=== PATIENT | female | born 1975 | race Caucasian/White ===

== ENCOUNTER → 2017-06-17 | Outpatient (CLI) | payer BC ==
[~2017-06-17] MED LIST: AMBIEN 5MG TABLE5 MG PO; BENADRYL PO; CARAFATE 1GM1 G PO; CLARITIN PO; DICYCLOMINE HCL10 MG PO; FLONASE NASAL S16 GM NS; GAS-X80 MG PO; LEVAQUIN 750MG750 M1 PO; NASONEX SPRAY; NO HOME MEDICATIONS; ORTHO TRI-CYCLE1 TA2 PO; PERCOCET 325 MG1 TA2 PO; PHENERGAN 25 TA25 MG PO; PRENATAL VITAMI1 TAB PO; PRIL40 PO; TUMS500 MG PO; TYLENOL 325MG325 MG PO; TYLENOL W/COD1 UDTAB PO; ZANTAC; ZOFRAN 4MG T4 MG/TAB PO; ZOFRAN4 MG PO
== END ==
LOC: MC.RAD 14:13
DX: Z12.31 Encounter for screening mammogram for malignant neoplasm of breast (principal)

== ENCOUNTER → 2018-10-27 | Outpatient (CLI) | payer BC | LOC: MC.RAD 13:00 | DX: Z12.31 Encounter for screening mammogram for malignant neoplasm of breast (principal) ==

== ENCOUNTER → 2018-11-07 | Outpatient (CLI) | payer BC | LOC: MC.RAD 09:30 | DX: R92.2 Inconclusive mammogram (principal) | CPT/HCPCS: G0279 ==

== ENCOUNTER → 2019-11-10 | Outpatient (CLI) | payer BC | LOC: MC.RAD 13:00 | DX: Z12.31 Encounter for screening mammogram for malignant neoplasm of breast (principal) ==

== ENCOUNTER → 2020-11-15 | Outpatient (CLI) | payer BC | LOC: MC.RAD 13:28 | DX: Z12.31 Encounter for screening mammogram for malignant neoplasm of breast (principal) ==

== ENCOUNTER → 2021-12-27 | Outpatient (CLI) | payer BC | LOC: COL.LAB 11:20 | DX: J30.1 Allergic rhinitis due to pollen (principal) ==

== ENCOUNTER → 2023-12-03 | Outpatient (CLI) | payer BC | LOC: MC.RAD 13:44 | DX: Z12.31 Encounter for screening mammogram for malignant neoplasm of breast (principal); N63.11 Unspecified lump in the right breast, upper outer quadrant ==

== ENCOUNTER → 2023-12-10 | Outpatient (CLI) | payer BC | LOC: MC.RAD 13:00 | DX: R92.8 Other abnormal and inconclusive findings on diagnostic imaging of breast (principal) ==